=== PATIENT | female | born 2000 | race Caucasian/White ===

== ENCOUNTER 2025-01-01 15:01 | Emergency (ER) | payer OTHER ==
[2025-01-01 15:18] VITALS: BP 127/76; PULSE 78; RESP 18; TEMP 98.6; BMI 35.2
[2025-01-01] MEDS ORDERED: ACETAMINOPHEN 325 MG TABLET (FP) ONE (15:44)
[2025-01-01] MEDS: ACETAMINOPHEN 325 MG TABLET (FP) PO ONE (15:46)
[2025-01-01 15:48] LABS: EPI CELLS 27 /uL (0-25.1); HYALINE CASTS 1 /uL (0-3.1); PH,URINE 6.5 (5.0-8.0); URINE APPEARANCE CLEAR; URINE BACTERIA 267 /uL (0-1359); URINE BILIRUBIN NEGATIVE (NEGATIVE); URINE COLOR YELLOW; URINE GLUCOSE (UA) NEGATIVE (NEGATIVE); URINE KETONE NEGATIVE (NEGATIVE); URINE LEUK ESTERASE 2+ (NEGATIVE); URINE NITRITE NEGATIVE (NEGATIVE); URINE PROTEIN NEGATIVE (NEGATIVE); URINE RBC 13 /uL (0-23.9); URINE UROBILINOGEN 0.2 mg/dL (0.2-1.0); URINE WBC 331 /uL (0-25.8)
[2025-01-01 15:49] LABS: HCG,QUALITATIVE URINE Negative
== END 2025-01-01 16:12 | disposition home or self-care (01) ==
LOC: JER 15:01
DX: N12 Tubulo-interstitial nephritis, not specified as acute or chronic (principal); R30.0 Dysuria; R31.29 Other microscopic hematuria; M54.6 Pain in thoracic spine
CPT/HCPCS: 81003; 84703; 87086; 99283-25